=== PATIENT | male | born 1975 | race Caucasian/White ===

== ENCOUNTER 2019-02-21 16:56 | Emergency (ER) | payer MEDICAID ==
[~2019-02-21] VITALS: Ht 172.7 cm; Wt 74.8 kg
[2019-02-21 17:06] VITALS: Ht 172.7 cm; Wt 74.8 kg
[2019-02-21 19:01] VITALS: BP 122/71
== END 2019-02-21 18:30 | disposition home or self-care (01) ==
LOC: ED 16:56
DX: G51.0 Bell's palsy (principal)